=== PATIENT | female | born 1990 | race Caucasian/White ===

== ENCOUNTER 2017-09-16 00:52 | Emergency (ER) | payer OTHER ==
[2017-09-16 01:05] VITALS: RESP 18
[2017-09-16 03:24] LABS: BASO # 0.1 K/uL (0.0-0.2); BASO % 0.7 % (0.0-2.0); EOS # 0.3 K/uL (0.0-0.7); EOS % 2.5 % (0.0-4.0); HEMOGLOBIN 13.4 g/dL (12.0-16.0); LYMPH % 23.7 % (20.0-40.0); MEAN CELL VOLUME 89.8 fl (81.0-99.0); MEAN CORPUSCULAR HGB CONC 33.4 g/dL (33.0-37.0); MEAN PLATELET VOLUME 8.7 fl (7.2-11.7); MONO # 0.6 K/uL (0.0-0.8); MONO % 4.7 % (0.0-10.0); NEUT # 8.5 K/uL (1.8-7.0); NEUT % 68.4 % (50.0-75.0); NRBC % 0.2 % (0.0-0.0); RBC 4.46 Mil/uL (3.80-5.20); RED CELL DISTRIBUTION WIDTH 14.3 % (11.5-14.5); WHITE BLOOD COUNT 12.5 K/uL (4.8-10.8)
[2017-09-16 03:25] LABS: SQUAMOUS EPITHIAL 12 /hpf (0-5); URINE BACTERIA RARE (<OCC); URINE BILIRUBIN NEGATIVE (NEGATIVE); URINE BLOOD LARGE (NEGATIVE); URINE CLARITY CLOUDY (Clear); URINE COLOR YELLOW (YELLOW); URINE GLUCOSE (UA) 50 mg/dL (Normal); URINE LEUKOCYTE ESTERASE TRACE Leu/uL (Negative); URINE PROTEIN NEGATIVE (NEGATIVE); URINE UROBILINOGEN 0.2-1.0 mg/dL (0.2-1.0)
--- NOTE | 2017-09-16 03:41 | ED PDOC ---
HPI: Female Pain Time Seen by Provider: 09/16/17 02:03 Chief Complaint (Nursing): Female Genitourinary Chief Complaint (Provider): Vaginal Bleeding History Per: Patient History/Exam Limitations: no limitations Onset/Duration Of Symptoms: Hrs (x2) Current Symptoms Are (Timing): Still Present Additional Complaint(s): 27 yo female presents to the ED for evaluation of vaginal spotting for the last 2 hours, which has required the use of one pad. The patient reports visiting a clinic 9 days ago for mild lower abdominal cramping, and found out she was ~6 weeks . Her abdominal pain has since resolved. This is her second and currently denies any pain. Of note, her first resulted in a miscarriage between 4-6 weeks. She has not had any care for this and denies any fever, N/V/D, SOB, urinary symptoms, vaginal discharge , chest pain, leg swelling, calf tenderness, or shortness of breath. Her last menstrual period was on 08/07/17. PMD: None : 2 Para: 0 Miscarriage: 1 Past Medical History Reviewed: Historical Data, Nursing Documentation, Vital Signs Vital Signs: Last Vital Signs Temp 97.9 F 09/16/17 01:03 Pulse 90 09/16/17 01:03 Resp 18 09/16/17 01:03 BP 144/93 H 09/16/17 01:03 Pulse Ox 100 09/16/17 01:03 - Medical History PMH: No Chronic Diseases - Surgical History Surgical History: No Surg Hx - Family History Family History: States: Unknown Family Hx - Social History Current smoker - smoking cessation education provided: No Ex-Smoker (has not smoked in the last 12 months): Yes (quit smoking after finding out she was ) Alcohol: Social Drugs: Denies - Home Medications Home Medications: Ambulatory Orders Medication Instructions Recorded 21/Iron Fu/Folic Acid 1 each PO DAILY #30 tablet 09/16/17 [ Complete Caplet] - Allergies Allergies/Adverse Reactions: Allergies Allergy/AdvReac Type Severity Reaction Status Date / Time No Known Allergies Allergy Verified 09/16/17 01:00 Review of Systems ROS Statement: Except As Marked, All Systems Reviewed And Found Negative Constitutional: Negative for: Fever Cardiovascular: Negative for: Chest Pain Respiratory: Negative for: Shortness of Breath Gastrointestinal: Negative for: Abdominal Pain Genitourinary Female: Positive for: Vaginal Bleeding. Negative for: Vaginal Discharge Physical Exam - Reviewed Nursing Documentation Reviewed: Yes Vital Signs Reviewed: Yes - Physical Exam Appears: Positive for: Well, Non-toxic, No Acute Distress Head Exam: Positive for: ATRAUMATIC, NORMAL INSPECTION, NORMOCEPHALIC Skin: Positive for: Normal Color, Warm, Dry Eye Exam: Positive for: EOMI, PERRL ENT: Positive for: Pharynx Is (clear, uvula midline), Other (mucus membranes moist) Neck: Positive for: Painless ROM, Supple Cardiovascular/Chest: Positive for: Regular Rate, Rhythm Respiratory: Positive for: Normal Breath Sounds. Negative for: Decreased Breath Sounds, Accessory Muscle Use, Respiratory Distress Gastrointestinal/Abdominal: Positive for: Bowel Sounds (active x4), Soft. Negative for: Tenderness, Distended, Guarding Back: Negative for: L CVA Tenderness, R CVA Tenderness, Vertebral Tenderness Extremity: Positive for: Normal ROM. Negative for: Pedal Edema, Calf Tenderness , Deformity Neurologic/Psych: Positive for: Alert, Oriented (x3), Gait (steady in ED). Negative for: Motor/Sensory Deficits, Aphasia, Facial Droop - Laboratory Results Result Diagrams: 09/16/17 03:16 09/16/17 03:16 - ECG O2 Sat by Pulse Oximetry: 100 (RA) Pulse Ox Interpretation: Normal Medical Decision Making Medical Decision Making: Impression: --Vaginal Bleeding in 1st Trimester Plan: --Blood Type and Screen --Beta-HCG, Quantitative --IV Insertion --Urinalysis --CBC --CMP Reassess --0510 Labs reviewed. U/S ordered to r/o confirm IUP. Patient resting comfortably on re-evaluation. 0710 U/S reviewed, radiology report follows EXAM: US , Transvaginal CLINICAL HISTORY: 27 years old, female; Pain; Pelvic pain; Additional info: (+) preg, bleeding TECHNIQUE: Real-time transvaginal obstetrical ultrasound of the maternal pelvis and a first trimester with image documentation. Transvaginal imaging was used for better evaluation of the fetus and adnexa. COMPARISON: No relevant prior studies available. FINDINGS: Gestation: No intrauterine gestational sac. Uterus/cervix: Endometrium: 2.2 cm in thickness. Closed cervix. Ovaries: RIGHT ovary: 2.2 x 2.3 x 1.9 cm anechoic lesion. LEFT ovary: Normal. No adnexal masses. Free fluid: Trace free fluid within pelvis. IMPRESSION: 1. No intrauterine gestation. DDX: Early IUP, missed , ectopic . 2. RIGHT ovarian cyst. Thank you for allowing us to participate in the care of your patient. Dictated and Authenticated by: Garry Novoa MD 09/16/2017 7:03 AM Eastern Time (US & Any) 0715 On exam, patient remains AAOx3, in no acute distress. Lungs clear to auscultation, cardiac RRR, abdomen soft, non-tender, repeat neuro exam shows no focal findings. Patient continues to deny abdominal pain at this time. Also denies any increase in vaginal bleeding. Repeat HR: 81. Repeat BP: 133/90. VSS, patient hemodynamically stable and appropriate for discharge with close follow up. Lab/Diagnostic results d/w the patient in great detail. Diagnosis of vaginal bleeding in first trimester/early d/w the patient. Based on history, exam and diagnostic results, plan will be for outpatient follow up. Patient instructed to follow-up with pmd / OBGYN / the clinic in 1-2 days without fail for repeat U/S and beta quant. Advised to take medication as prescribed. Return to the emergency room at any time for any new or worsening symptoms. Patient states she fully agrees with and understands discharge instructions. States that she agrees with the plan and disposition. Verbalized and repeated discharge instructions and plan. I have given the patient opportunity to ask any additional questions. Scribe Attestation: Documented by Jan Pretty acting as a scribe for REYES Canela. Provider Attestation: All medical record entries made by the Scribe were at my direction and personally dictated by me. I have reviewed the chart and agree that the record accurately reflects my personal performance of the history, physical exam, medical decision making, and the department course for this patient. I have also personally directed, reviewed, and agree with the discharge instructions and disposition. Disposition - Clinical Impression Clinical Impression: Vaginal bleeding affecting early - Patient ED Disposition Is Patient to be Admitted: No Counseled Patient/Family Regarding: Studies Performed, Diagnosis, Need For Followup, Rx Given - Disposition [facility]errals: [facility]Outside] Disposition: Routine/Home Disposition Time: 07:24 Condition: STABLE Additional Instructions: REPEAT U/S AND BETA QUANT WITHIN 48 HOURS. RETURN TO ED WITH ANY NEW OR WORSENING SYMPTOMS, INCLUDING ABDOMINAL PAIN OR INCREASED BLEEDING. Prescriptions: 21/Iron Fu/Folic Acid [ Complete Caplet] 1 each PO DAILY #30 tablet Instructions: Bleeding With , - The First Month Forms: [employer] ([place]) Print Language: SPANISH - POA Present On Arrival: None Results - Lab Results Lab Results: 09/16/17 09/16/17 09/16/17 04:29 03:16 03:16 WBC 12.5 H RBC 4.46 Hgb 13.4 Hct 40.1 MCV 89.8 MCH 30.0 MCHC 33.4 RDW 14.3 Plt Count 304 MPV 8.7 Neut % (Auto) 68.4 Lymph % (Auto) 23.7 Jennings % (Auto) 4.7 Eos % (Auto) 2.5 Baso % (Auto) 0.7 Neut # (Auto) 8.5 H Lymph # (Auto) 3.0 Jennings # (Auto) 0.6 Eos # (Auto) 0.3 Baso # (Auto) 0.1 Sodium Potassium Chloride Carbon Dioxide Anion Gap BUN Creatinine Est GFR ( Amer) Est GFR (Non-Af Amer) Random Glucose Calcium Total Bilirubin AST ALT Alkaline Phosphatase Total Protein Albumin Globulin Albumin/Globulin Ratio Beta HCG, Quant Urine Color Yellow Urine Clarity Cloudy Urine pH 6.0 Ur Specific [place] 1.018 Urine Protein Negative Urine Glucose (UA) 50 Urine Ketones Negative Urine Blood Large Urine Nitrate Negative Urine Bilirubin Negative Urine Urobilinogen 0.2-1.0 Ur Leukocyte Esterase Trace Urine RBC (Auto) 4 H Urine Microscopic WBC 9 H Ur Squamous Epith Cells 12 H Urine Bacteria Rare Blood Type Blood Type Confirm A POSITIVE Antibody Screen BBK History Checked 09/16/17 09/16/17 03:16 03:07 WBC RBC Hgb Hct MCV MCH MCHC RDW Plt Count MPV Neut % (Auto) Lymph % (Auto) Jennings % (Auto) Eos % (Auto) Baso % (Auto) Neut # (Auto) Lymph # (Auto) Jennings # (Auto) Eos # (Auto) Baso # (Auto) Sodium 140 Potassium 5.9 H Chloride 107 Carbon Dioxide 20 L Anion Gap 19 BUN 8 Creatinine 0.4 L Est GFR ( Amer) > 60 Est GFR (Non-Af Amer) > 60 Random Glucose 84 Calcium 7.2 L Total Bilirubin 1.5 H AST 52 H ALT 17 Alkaline Phosphatase 41 Total Protein 6.8 Albumin 3.5 Globulin 3.3 Albumin/Globulin Ratio 1.1 Beta HCG, Quant 119.05 Urine Color Urine Clarity Urine pH Ur Specific [place] Urine Protein Urine Glucose (UA) Urine Ketones Urine Blood Urine Nitrate Urine Bilirubin Urine Urobilinogen Ur Leukocyte Esterase Urine RBC (Auto) Urine Microscopic WBC Ur Squamous Epith Cells Urine Bacteria Blood Type A POSITIVE Blood Type Confirm Antibody Screen Negative BBK History Checked No verified bt
[2017-09-16 04:33] LABS: CALCIUM 7.2 mg/dL (8.4-10.2); GFR AFRICAN-AMERICAN > 60; GFR NON-AFRICAN AMERICAN > 60
[2017-09-16 04:37] LABS: ALB/GLOB RATIO 1.1 (1.0-2.1); ALBUMIN 3.5 g/dL (3.5-5.0); ALT/SGPT 17 U/L (9-52); AST/SGOT 52 U/L (14-36); BLOOD UREA NITROGEN 8 mg/dl (7-17)
--- NOTE | 2017-09-16 07:03 | US ---
EXAM: US , Transvaginal CLINICAL HISTORY: 27 years old, female; Pain; Pelvic pain; Additional info: (+) preg, bleeding TECHNIQUE: Real-time transvaginal obstetrical ultrasound of the maternal pelvis and a first trimester with image documentation. Transvaginal imaging was used for better evaluation of the fetus and adnexa. COMPARISON: No relevant prior studies available. FINDINGS: Gestation: No intrauterine gestational sac. Uterus/cervix: Endometrium: 2.2 cm in thickness. Closed cervix. Ovaries: RIGHT ovary: 2.2 x 2.3 x 1.9 cm anechoic lesion. LEFT ovary: Normal. No adnexal masses. Free fluid: Trace free fluid within pelvis. IMPRESSION: 1. No intrauterine gestation. DDX: Early IUP, missed , ectopic . 2. RIGHT ovarian cyst.
[2017-09-16 07:56] VITALS: BP 133/90; PULSE 81; TEMP 99
[2017-09-16 23:35] VITALS: O2SAT 100
== END 2017-09-16 08:25 | disposition home or self-care (01) ==
LOC: H.ER 00:52
DX: O20.9 Hemorrhage in early pregnancy, unspecified (principal); O26.891 Other specified pregnancy related conditions, first trimester; Z3A.01 Less than 8 weeks gestation of pregnancy; N83.201 Unspecified ovarian cyst, right side

== ENCOUNTER 2017-12-01 17:48 | Emergency (ER) | payer SELFPAY ==
[2017-12-01 18:18] VITALS: O2SAT 100
--- NOTE | 2017-12-01 19:29 | ED PDOC ---
HPI: Female Pain History/Exam Limitations: no limitations Onset/Duration Of Symptoms: Days Severity: Mild Quality Of Discomfort: Cramping Associated Symptoms: denies: Fever, Chills, Nausea, Vomiting, Diarrhea Additional Complaint(s): CC: vaginal bleeding HPI: 27 YO female @ approx 8 wks IUP presents to [facility] ED for vaginal bleeding. Pt recently found out she was 1 month ago, not sure about LMP because she recently had a miscarriage in 09/18/17 and never had her period after SAB. Additionally, pt was seen by MD for vaginal bleeding in 11/20/17. Ultrasound (11/28) was sig for single intrauterine with no heart rate detected (likely demise), [facility] [place] [place] on 11/28 20,000+. Pt states that she had some vaginal bleeding yesterday, small amount, and passed dark clots today. Endorsing mild suprapubic cramping pain. Denies chest pain, dyspnea, n/v/d/c, dysuria, hemturia, fever, chills MD: Dr. Real PMHx: denies SurgHx: denies SH: smoking 12+yrs quit 2 months ago, social ETOH and denies illicit drug use FH: denies, no blood disorders Allergies: NKDA Meds: PNV <Jolly Shaver - Last Filed: 12/01/17 19:44> History Per: Patient <EjAbhilash - Last Filed: 12/01/17 20:01> Time Seen by Provider: 12/01/17 18:37 Chief Complaint (Nursing): Female Genitourinary Past Medical History Vital Signs: Last Vital Signs Temp 98.8 F 12/01/17 18:18 Pulse 78 12/01/17 18:18 Resp 16 12/01/17 18:18 BP 129/94 H 12/01/17 18:18 Pulse Ox 100 12/01/17 18:18 - Medical History PMH: No Chronic Diseases - Surgical History Surgical History: No Surg Hx - Family History Family History: States: No Known Family Hx - Living Arrangements Living Arrangements: With Family - Social History Current smoker - smoking cessation education provided: No Ex-Smoker (has not smoked in the last 12 months): Yes (12+yrs) Alcohol: Social Drugs: Denies <Jolly Shaver - Last Filed: 12/01/17 19:44> Reviewed: Historical Data, Nursing Documentation, Vital Signs Vital Signs: Last Vital Signs Temp 98.8 F 12/01/17 18:18 Pulse 78 12/01/17 18:18 Resp 16 12/01/17 18:18 BP 129/94 H 12/01/17 18:18 Pulse Ox 100 12/01/17 19:49 <EjAbhilash - Last Filed: 12/01/17 20:01> - Home Medications Home Medications: Ambulatory Orders Medication Instructions Recorded 21/Iron Fu/Folic Acid 1 each PO DAILY #30 tablet 09/16/17 [ Complete Caplet] - Allergies Allergies/Adverse Reactions: Allergies Allergy/AdvReac Type Severity Reaction Status Date / Time No Known Allergies Allergy Verified 09/16/17 01:00 Review of Systems Constitutional: Negative for: Fever, Chills Cardiovascular: Negative for: Chest Pain, Palpitations Respiratory: Negative for: Cough, Shortness of Breath Gastrointestinal: Positive for: Abdominal Pain. Negative for: Nausea, Vomiting , Diarrhea, Constipation Genitourinary Female: Positive for: Vaginal Bleeding. Negative for: Dysuria, Frequency Neurological: Negative for: Weakness, Numbness <Jolly Shaver - Last Filed: 12/01/17 19:44> ROS Statement: Except As Marked, All Systems Reviewed And Found Negative <Abhilash Pagan - Last Filed: 12/01/17 20:01> Physical Exam - Physical Exam Appears: Positive for: No Acute Distress Head Exam: Positive for: ATRAUMATIC Skin: Positive for: Normal Color. Negative for: Pallor, Mottled Eye Exam: Positive for: Normal appearance, EOMI Cardiovascular/Chest: Positive for: Regular Rate, Rhythm. Negative for: Murmur Respiratory: Positive for: Normal Breath Sounds. Negative for: Wheezing Gastrointestinal/Abdominal: Positive for: Normal Exam, Bowel Sounds, Soft. Negative for: Tenderness Pelvic Exam: Positive for: Other (cervix finger tip, ripening of the cervix, non tender). Negative for: No Masses, Active Bleeding Back: Positive for: Normal Inspection. Negative for: L CVA Tenderness, R CVA Tenderness Extremity: Positive for: Normal ROM. Negative for: Tenderness, Pedal Edema Neurologic/Psych: Positive for: Alert <Jolly Shaver - Last Filed: 12/01/17 19:44> - Reviewed Vital Signs Reviewed: Yes (elevated DBP) <Abhilash Pagan - Last Filed: 12/01/17 20:01> - ECG O2 Sat by Pulse Oximetry: 100 - Progress ED Course And Treament: 37 YO @ approx 8wks IUP with vaginal bleeding. VS stable, NAD -transvaginal u/s -udip, UA -BHCG quant Pt endorsed to Dr. Beregron and Dr. Torres. <SivakumarJolly - Last Filed: 12/01/17 19:44> - ECG Pulse Ox Interpretation: Normal - Progress ED Course And Treament: I performed the hx and physical exam of the patient and discussed their mgt with the RESIDENT. I reviewed the RESIDENT's NOTE and agree with the assessment and plan of care. pt appearing comfortable, resting in bed pt is awaiting Pelvic sono and lab results 7:10pm - pt is endorsed to overnight ED attending, Dr Torres, awaiting U/S and lab/ua results, pt can be dispositioned accordingly Re-evaluation Time: 19:30 Condition: Re-examined, Unchanged <Abhilash Pagan - Last Filed: 12/01/17 20:01> Medical Decision Making Medical Decision Making: Impression: vag bleeding/ i have consider all the differential diagnosis regarding pt's chief medical complaints/clinical findings, including but are not limited to: threaten ab? A/P: vag bleeding - us - ua - bhcg - supportive care - observe/reevaluation <EjAbhilash - Last Filed: 12/01/17 20:01> Disposition - Patient ED Disposition Is Patient to be Admitted: Transfer of Care - Disposition Disposition Time: 19:38 <Jolly Shaver - Last Filed: 12/01/17 19:44> Discussed With DrJuanita: Wilber Torres (pt is awaiting U/S, UA, B-HCG level, pt can be dispositioned accordingly) Counseled Patient/Family Regarding: Diagnosis, Need For Followup, Rx Given <Abhilash Pagan - Last Filed: 12/01/17 20:01> - Clinical Impression Clinical Impression: Vaginal bleeding - Disposition Condition: STABLE Forms: [employer] ([place] Islander)
[2017-12-01 20:22] LABS: SQUAMOUS EPITHIAL 2 /hpf (0-5); URINE BACTERIA RARE (<OCC); URINE BILIRUBIN NEGATIVE (NEGATIVE); URINE BLOOD LARGE (NEGATIVE); URINE CLARITY CLOUDY (Clear); URINE COLOR YELLOW (YELLOW); URINE GLUCOSE (UA) NEG (Normal); URINE LEUKOCYTE ESTERASE NEG Leu/uL (Negative); URINE PROTEIN 30 mg/dL (NEGATIVE); URINE UROBILINOGEN 0.2-1.0 mg/dL (0.2-1.0)
--- NOTE | 2017-12-01 22:25 | ED PDOC ---
- ECG O2 Sat by Pulse Oximetry: 100 - Progress ED Course And Treament: TIME 19:20 :Patient signed out to the life underwriter by Dr. Shaver pending labs and imaging. Pending: --Beta Quant --Urine Dip --Transvaginal U/S. TIME: 2034 Beta Quant: [id number] Udip: +Blood Pending TV ultrasound. Lying comfortably in bed. TIME 22:00 Patient in u/s Disposition - Clinical Impression Clinical Impression: Vaginal bleeding - Disposition Condition: STABLE Forms: [employer] (U[place]bek)
[2017-12-01 23:06] VITALS: BP 138/95; PULSE 82; RESP 18; TEMP 98.4
--- NOTE | 2017-12-02 12:10 | US ---
Date of service: 12/01/2017 HISTORY: vaginal bleeding COMPARISON: Comparison made with pelvic ultrasound 11/28/2017 TECHNIQUE: Transvaginal sonographic evaluation of the pelvis performed. FINDINGS: UTERUS: Measures 3.1 x 6.0 x 5.0 cm. Normal in size and appearance. Anteverted No fibroid or other mass lesion seen. ENDOMETRIUM: Gestational sac: MSD = 2.1 = 6 weeks 4 days Yolk sac: 0.45 cm pole: 0.34 cm = 6 weeks 0 days Heart motion: No heart rate detected Average ultrasound age: 6 weeks 2 days 0 weeks 3 days RICARDO based on average ultrasound age: 0307/25/2018 There is a small subchorionic hemorrhage measuring 1.0 x 1.8 x 0.8 cm. CERVIX: Cervix closed RIGHT OVARY: Measures 3.4 x 2.4 x 2.4 cm. No solid mass. Normal flow. . There is a small corpus luteum cyst LEFT OVARY: Measures 3.4 x 2.3 x 2.6 cm. No solid mass. Normal flow. FREE FLUID: No significant free fluid noted. OTHER FINDINGS: None. IMPRESSION: Gestational sac and pole however no heart rate detected. Findings likely represent demise however continued followup at interval recommended to assess for possible development of viable intrauterine gestation. Follow-up serial serum beta HCG and serial pelvic ultrasounds recommended Small subchorionic hemorrhage measuring 1.0 x 1.8 x 0.8 cm
== END 2017-12-01 23:05 | disposition home or self-care (01) ==
LOC: H.ER 17:48
DX: O20.9 Hemorrhage in early pregnancy, unspecified (principal); Z3A.08 8 weeks gestation of pregnancy

== ENCOUNTER 2018-08-08 19:19 | Emergency (ER) | payer SELFPAY ==
[2018-08-08 20:25] VITALS: O2SAT 99
[2018-08-08] MEDS ORDERED: DiphenhydrAMINE 50 mg/ml Inj IVP STA (21:31)
[2018-08-08] MEDS ORDERED: Sodium Chloride 0.9% 1,000 ML IV ONE (21:31)
[2018-08-08] MEDS ORDERED: DiphenhydrAMINE 50 mg/ml Inj ONE (21:41)
--- NOTE | 2018-08-08 21:43 | ED PDOC ---
HPI: Headache Time Seen by Provider: 08/08/18 21:26 Chief Complaint (Nursing): Headache Chief Complaint (Provider): Headache/Migrane History Per: Patient History/Exam Limitations: no limitations Onset/Duration Of Symptoms: Days (one) Current Symptoms Are (Timing): Still Present Severity: Mild Quality: Squeezing, "Pain" Preceeding Symptoms: None Associated Symptoms: Nausea, Vomiting Additional Complaint(s): Pt presents to the ED as a clinic patient with a history of migraine headaches. Pt indicates that this headache is mildly different in that it effects her fron glenis sinus area. Pt also complains of nausea and vomiting with this headache. Pt denies pre symptoms such as an aura; Pt denies other illnesses or complaints Past Medical History Reviewed: Historical Data, Nursing Documentation, Vital Signs Vital Signs: Last Vital Signs Temp 98.4 F 08/08/18 20:24 Pulse 81 08/08/18 20:24 Resp 16 08/08/18 20:24 BP 156/94 H 08/08/18 20:24 Pulse Ox 99 08/08/18 20:24 - Family History Family History: States: Unknown Family Hx - Home Medications Home Medications: Ambulatory Orders Medication Instructions Recorded 21/Iron Fu/Folic Acid 1 each PO DAILY #30 tablet 09/16/17 [ Complete Caplet] Amoxicillin/Clavulanate [Augmentin 1 tab PO BID #20 tab 08/09/18 875 MG-125 MG] - Allergies Allergies/Adverse Reactions: Allergies Allergy/AdvReac Type Severity Reaction Status Date / Time No Known Allergies Allergy Verified 08/08/18 20:22 Review of Systems ROS Statement: Except As Marked, All Systems Reviewed And Found Negative Gastrointestinal: Positive for: Nausea, Vomiting Neurological: Positive for: Headache Physical Exam - Reviewed Nursing Documentation Reviewed: Yes Vital Signs Reviewed: Yes - Physical Exam Appears: Positive for: Well, Non-toxic, No Acute Distress. Negative for: Uncomfortable Head Exam: Positive for: ATRAUMATIC, NORMAL INSPECTION Skin: Positive for: Normal Color, Warm, Dry. Negative for: Diaphoresis, Pallor, Rash Eye Exam: Positive for: Normal appearance, EOMI, PERRL. Negative for: Nystagmus, Periorbital swelling, Periorbital tenderness ENT: Positive for: Pharynx Is (mildly erythematous with no tonsilar or pharangeal exudate), Sinus Pain/Drainage (there is frontal sinus pain bilaterally to palpation), Pharyngeal Erythema. Negative for: Nasal Congestion, Tonsillar Exudate, Tonsillar Swelling Neck: Positive for: Normal, Painless ROM, Supple. Negative for: Decreased ROM Cardiovascular/Chest: Positive for: Regular Rate, Rhythm, Chest Non Tender. Negative for: Bradycardia, Tachycardia Respiratory: Positive for: Normal Breath Sounds. Negative for: Crackles, Rales, Rhonchi, Stridor, Wheezing, Respiratory Distress Pulses-Carotid (L): 2+ Pulses-Carotid (R): 2+ Pulses-Radial (L): 2+ Pulses-Radial (R): 2+ - Laboratory Results Result Diagrams: 08/08/18 21:57 08/08/18 21:57 - ECG O2 Sat by Pulse Oximetry: 99 Medical Decision Making Medical Decision Making: I: Migraine DUMONT with nausea P: CBC CMP UA UPreg Fluids APAP Toradol Benadryl and zofran Flu and STrep swab Disposition - Clinical Impression Clinical Impression: Acute sinusitis - Patient ED Disposition Is Patient to be Admitted: No - Disposition Disposition Time: 00:53 Condition: IMPROVED Prescriptions: Amoxicillin/Clavulanate [Augmentin 875 MG-125 MG] 1 tab PO BID #20 tab Instructions: Sinusitis in Adults, Sinusitis, Adult (DC) Forms: [employer] (German)
[2018-08-08 22:12] LABS: BASO % 0.5 % (0.0-2.0); EOS # 0.3 K/uL (0.0-0.7); EOS % 2.8 % (0.0-4.0); HEMOGLOBIN 13.7 g/dL (12.0-16.0); LYMPH # 2.7 K/uL (1.0-4.3); LYMPH % 27.2 % (20.0-40.0); MEAN CELL VOLUME 90.3 fl (81.0-99.0); MEAN CORPUSCULAR HEMOGLOBIN 29.9 pg (27.0-31.0); MEAN CORPUSCULAR HGB CONC 33.1 g/dL (33.0-37.0); MEAN PLATELET VOLUME 7.8 fl (7.2-11.7); MONO # 0.5 K/uL (0.0-0.8); MONO % 5.5 % (0.0-10.0); NEUT # 6.2 K/uL (1.8-7.0); RBC 4.58 Mil/uL (3.80-5.20); RED CELL DISTRIBUTION WIDTH 12.5 % (11.5-14.5); WHITE BLOOD COUNT 9.8 K/uL (4.8-10.8)
[2018-08-08 22:21] LABS: ALB/GLOB RATIO 1.3 (1.0-2.1); ALBUMIN 4.5 g/dL (3.5-5.0); ALT/SGPT 27 U/L (9-52); AST/SGOT 21 U/L (14-36); BLOOD UREA NITROGEN 8 mg/dl (7-17); CALCIUM 9.8 mg/dL (8.4-10.2); GFR NON-AFRICAN AMERICAN > 60
[2018-08-09 00:27] LABS: SQUAMOUS EPITHIAL 2 /hpf (0-5); URINE BILIRUBIN NEGATIVE (NEGATIVE); URINE BLOOD NEGATIVE (NEGATIVE); URINE CLARITY SLIGHTY-CLOUDY (Clear); URINE COLOR STRAW (YELLOW); URINE GLUCOSE (UA) NEG (NEGATIVE); URINE LEUKOCYTE ESTERASE NEG Leu/uL (Negative); URINE PROTEIN NEGATIVE (NEGATIVE); URINE UROBILINOGEN 0.2-1.0 mg/dL (0.2-1.0)
[2018-08-09 01:27] VITALS: BP 137/73; PULSE 74; RESP 17; TEMP 98.2
== END 2018-08-09 01:26 | disposition home or self-care (01) ==
LOC: H.ER 19:19
DX: G43.909 Migraine, unspecified, not intractable, without status migrainosus (principal); J01.90 Acute sinusitis, unspecified
CPT/HCPCS: 80053; 81003; 81025; 85025; 87070; 87430; 87804; 96374; 96375; 99285; J1200; J1885; J2405; J7030